=== PATIENT | female | born 1975 | race Caucasian/White ===

== ENCOUNTER 2019-02-05 23:50 | Emergency (ER) | payer SELFPAY ==
[~2019-02-05] VITALS: Ht 167.6 cm; Wt 83.3 kg
[2019-02-05 23:52] VITALS: Ht 167.6 cm; Wt 83.3 kg
[2019-02-05] MEDS ORDERED: DIPHENHYDRAMINE 50 MG INJ IV STA (23:59)
[2019-02-05] MEDS ORDERED: EPINEPHrine 1 MG INJ IM STA (23:59)
[2019-02-05] MEDS ORDERED: ALBUTEROL 0.083% (NEB) 2.5 MG/3 ML AMP INH STA (23:59)
[2019-02-05] MEDS ORDERED: FAMOTIDINE 20 MG INJ IV STA (23:59)
[2019-02-05] MEDS ORDERED: IPRATROPIUM (NEB) 0.5 MG/2.5 ML AMP INH STA (23:59)
[2019-02-05] MEDS ORDERED: METHYLPREDNISOLONE 125 MG INJ IV STA (23:59)
--- NOTE | 2019-02-06 01:55 | ERD ---
ER Documentation Chief Complaint Chief Complaint ALLERGY RX-FACIAL EDEMA [id number]; NO RESP DISTRESS AT THIS TIME HPI Is important for a few months of been allergic reaction to some unknown s ubstance. She started getting facial edema and some mild tongue swelling for 20 minutes. Denies any difficulty breathing or difficulty tolerating secretions. Denies any other current issues. ROS All systems reviewed and are negative except as per history of present illness. Allergies Allergies: Coded Allergies: lidocaine (Verified Allergy, Unknown, 02/06/19) PMhx/Soc Hx Miscellaneous Medical Probl: Yes (HYPOTHYROIDISM) Hx Alcohol Use: No Hx Substance Use: No Hx Tobacco Use: No Smoking Status: Never smoker Physical Exam Vitals Vital Signs Date Temp Pulse Resp B/P (MAP) Pulse Ox O2 O2 Flow FiO2 Time Delivery Rate 02/06/19 120 21 143/116 100 Room Air 00:58 (125) 02/06/19 111 20 99 21 00:47 02/05/19 98.6 105 22 145/86 99 23:52 (105) Physical Exam Const: No acute distress Head: Atraumatic Eyes: Normal Conjunctiva ENT: Normal External Ears, Nose and Mouth. Neck: Full range of motion. No meningismus. Resp: Clear to auscultation bilaterally Cardio: Regular rate and rhythm, no murmurs Abd: Soft, non tender, non distended. Normal bowel sounds Skin: No petechiae or rashes Back: No midline or flank tenderness Ext: No cyanosis, or edema Neur: Awake and alert Psych: Normal Mood and Affect Results 24 hrs Current Medications Medications Dose Sig/Víctor Start Time Status Last (Trade) Ordered Route PRN Stop Time Admin Dose Reason Admin 50 mg ONCE STAT 02/05/19 DC 02/06/19 Diphenhydrami IV 23:59 00:23 ne HCl 02/06/19 00:18 (Benadryl) Epinephrine 0.3 mg ONCE STAT 02/05/19 DC 02/06/19 IM 23:59 00:26 (EPINEPHrine) 02/06/19 00:18 Famotidine 20 mg ONCE STAT 02/05/19 DC 02/06/19 (Pepcid Iv) IV 23:59 00:24 02/06/19 00:18 125 mg ONCE STAT 02/05/19 DC 02/06/19 Methylprednis IV 23:59 00:26 olone Sodium 02/06/19 00:18 Succinate (Solu-Medrol) Albuterol 5 mg ONCE STAT 02/05/19 DC 02/06/19 (Proventil INH 23:59 00:47 0.083% (Neb)) 02/06/19 00:18 Ipratropium 0.5 mg ONCE STAT 02/05/19 DC 02/06/19 [place] INH 23:59 00:47 (Atrovent 02/06/19 00:18 0.02% (Neb)) Procedures/MDM Medical decision makin female mild anaphylactic reaction patient treated here with epinephrine Benadryl and steroids. She is resolved well. Is been observed for a few hours with no recurrence of symptoms. Patient will be discharged home and told to follow-up primary care physician. Discharged with steroids Benadryl and Pepcid. Departure Diagnosis: Primary Impression: Allergic reaction Encounter type: initial encounter Qualified Codes: T78.40XA - Allergy, unspecified, initial encounter Condition: Stable MIMI RAZO Feb 06, 2019 01:55
[2019-02-06] MEDS ORDERED: FAMO-96 PO (01:56)
[2019-02-06] MEDS ORDERED: BEN50 PO (01:56)
[2019-02-06] MEDS ORDERED: PRED20TA PO (01:56)
[2019-02-06 02:41] VITALS: BP 138/72; PULSE 118; RESP 19
== END 2019-02-06 02:43 | disposition home or self-care (01) ==
LOC: E/R 23:50
DX: R60.0 Localized edema (principal); E03.9 Hypothyroidism, unspecified
CPT/HCPCS: 94664; 96372; 96374; 96375; 99284; J0171; J1200; J2930